=== PATIENT | male | born 1995 | race African-American/Black ===

== ENCOUNTER 2019-06-01 10:21 | Emergency (ER) | payer SELFPAY ==
[~2019-06-01] VITALS: Ht 170.2 cm; Wt 70.0 kg
[2019-06-01 10:49] VITALS: BP 129/70
== END 2019-06-01 12:59 | disposition home or self-care (01) ==
LOC: ER 10:44
DX: B99.9 Unspecified infectious disease (principal); H10.89 Other conjunctivitis
CPT/HCPCS: 99283